=== PATIENT | male | born 1970 | race Caucasian/White ===

== ENCOUNTER 2016-07-12 12:01 | Outpatient (CLI) | payer OTHER ==
[2014-04-16 00:19] VITALS: BP 140/58
[2016-07-12 12:42] LABS: eGFR (African) > 60; eGFR (Non-African) > 60
== END 2016-07-12 12:02 ==
LOC: LAB 12:01
PROVIDERS: ATTEND Family Medicine
DX: R73.9 Hyperglycemia, unspecified (principal)
CPT/HCPCS: 36415; 80053; 80061; 83036

== ENCOUNTER 2018-03-01 10:52 | Outpatient (CLI) | payer BC ==
[2014-04-16 00:19] VITALS: BP 140/58
[2018-03-01 11:44] LABS: eGFR (Non-African) > 60
== END 2018-03-01 10:57 | disposition home or self-care (01) ==
LOC: LAB 10:52
PROVIDERS: ATTEND Nurse Practitioner Family
DX: R73.9 Hyperglycemia, unspecified (principal)
CPT/HCPCS: 36415; 80053; 83036

== ENCOUNTER 2018-11-19 16:45 | Emergency (ER) | payer BC, OTHER ==
--- NOTE | 2018-11-19 17:08 | ED Physician Documentation ---
General Adult - HISTORIAN Historian: patient - HPI Stated Complaint: nausea/vomiting and dizziness Chief Complaint: General Adult Additional Information: Patient presents to ED with nausea/vomiting and dizziness since 1400 today. Patient states he ate a Sonic last night and got food poisoning. He also thinks he has BPPV, he looked it up on Youtube. Presenting blood pressure is 165/111. When patient was asked if he had abdominal pain, he said yes but couldn't remember where it was. Onset: hours (3) Timing: still present Severity: moderate - ROS CONST: denies: fever EYES/ENT: denies: problems with vision, sore throat CVS/RESP: denies: chest pain, shortness of breath GI/: abdominal pain (cant remember where), vomiting, nausea MS/SKIN/LYMPH: none NEURO/PSYCH: dizziness - PAST HX Past History: none Other History: none Surgeries/Procedures: none Allergies/Adverse Reactions: Allergies Allergy/AdvReac Type Severity Reaction Status Date / Time No Known Allergies Allergy Verified 04/15/14 21:30 Home Medications: Ambulatory Orders Medication Instructions Recorded Ondansetron HCl Rapdis [Zofran Odt] 4 mg PO Q8 PRN #20 tab 11/19/18 - SOCIAL HX Smoking History: non-smoker Alcohol Use: none Drug Use: none - FAMILY HX Family History: No - VITAL SIGNS Vital Signs: Vital Signs Temp Pulse Resp BP Pulse Ox 140/58 04/16/14 00:18 - REVIEWED ASSESSMENTS Nursing Assessment Reviewed: Yes Vitals Reviewed: Yes Progress - Progress Progress: 1610 Patient dizziness resolved after 1 liter of fluid. States he is feeling much better. General Adult Physical Exam - PHYSICAL EXAM GENERAL APPEARANCE: no distress EENT: NANCY NECK: supple. No: lymphadenopathy RESPIRATORY: no resp distress, chest non-tender, breath sounds normal CVS: reg rate & rhythm, heart sounds normal ABDOMEN: soft, normal bowel sounds, non-tender BACK: normal inspection SKIN: warm/dry, normal color EXTREMITIES: non-tender, normal range of motion, no evidence of injury, no edema NEURO: oriented X3, other (odd affect ) Discharge Clincal Impression: Nausea & vomiting Qualifiers: Vomiting type: cyclical vomiting Vomiting Intractability: non-intractable Qualified Code(s): G43.A0 - Cyclical vomiting, not intractable Prescriptions: Ondansetron HCl Rapdis [Zofran Odt] 4 mg PO Q8 PRN #20 tab PRN Reason: nausea/vomiting Referrals: Primary Doctor,No [REFERRING] - 2 Days Additional Instructions: 1. Zofran every 8 hours as needed for nausea/vomiting 2. Drink plenty of fluids, avoid caffeine and alcohol 3. Imodium as needed if diarrhea develops 4. Follow up with PCP within 1 week 5. Return to ER for new or worsening symptoms Condition: Stable Disposition: 01 HOME, SELF-CARE Decision to Admit: NO Date of Decison to Admit: 11/19/18 Decision Time: 19:08
[2018-11-19] MEDS: 0.9 % SODIUM CHLORIDE 1,000 ML IV ONE ×2 (17:25→18:16)
[2018-11-19] MEDS: ONDANSETRON HCL/PF 4 MG/ 2ML VIAL IVP ONE (17:25)
[2018-11-19 17:42] LABS: BASOPHILS % 0.4 % (0.0-1.5); NEUTROPHILS # 9.7 # k/uL (1.4-7.7)
[2018-11-19 17:44] LABS: eGFR (Non-African) > 60
[2018-11-19 20:13] VITALS: BP 170/101
[2018-11-20 06:33] LABS: APPEARANCE,URINE CLEAR (CLEAR); COLOR,URINE YELLOW (YELLOW); OCCULT BLOOD,URINE NEGATIVE (NEGATIVE); PH URINE 8.5 (5.0 - 8.0); UROBILINOGEN URINE 0.2 Eu (0.2-1.0)
[2018-11-20 06:33] LABS: CANNABINOIDS NEGATIVE ng/mL (< 50); METHYLENEDIOXYMETHAMPHETAMINE NEGATIVE ng/mL (<500)
== END 2018-11-19 19:20 | disposition home or self-care (01) ==
LOC: ED 16:45
DX: G43.A0 Cyclical vomiting, in migraine, not intractable (principal)
CPT/HCPCS: 80053; 80320; 80377; 81002; 85025; 96361; 96374; 99284; J2405; J7030; G0480; G0481; S1016